=== PATIENT | male | born 2000 ===

== ENCOUNTER 2024-04-10 17:21 | Emergency (ER) | payer SELFPAY ==
[~2024-04-10] VITALS: Ht 193 cm; Wt 95.5 kg
[2024-04-10 17:32] VITALS: BP 147/107; PULSE 82; RESP 22; TEMP 98.7
[2024-04-10] MEDS ORDERED: BACITRACIN 0.9 GM PACKET OINTMENT TP ONE (18:05)
[2024-04-10] MEDS: BACITRACIN 0.9 GM PACKET OINTMENT TP ONE (18:09)
[2024-04-10] MEDS: SODIUM CHLORIDE 0.9% 250 ML IRRIG SOLUTION BOTTLE IRRIG ONE (18:09)
== END 2024-04-10 18:17 ==
LOC: EMS 17:21
DX: S00.83XA Contusion of other part of head, initial encounter (principal); F31.9 Bipolar disorder, unspecified; F20.9 Schizophrenia, unspecified; W22.8XXA Striking against or struck by other objects, initial encounter; Y93.89 Activity, other specified; Y92.89 Other specified places as the place of occurrence of the external cause; Y99.8 Other external cause status
CPT/HCPCS: 99283